=== PATIENT | male | born 1970 | race Caucasian/White ===

== ENCOUNTER 2018-07-31 15:15 | Emergency (ER) | payer MEDICARE, MEDICAID ==
[~2018-07-31] VITALS: Ht 180.3 cm; Wt 74.5 kg
[2018-07-31 15:57] LABS: HEMATOCRIT 36.6 % (39.0-50.0); HEMOGLOBIN 13.3 g/dl (14.0-18.0); IMMATURE GRANULOCYTES 0.6 % (0.0-5.0); MEAN CELL VOLUME 100.5 fL CALC (80.0-100.0); MEAN CORPUSCULAR HGB 36.5 pG CALC (26.0-32.0); MEAN CORPUSCULAR HGB CONC 36.3 g/L CALC (32.0-36.0); NEUT# 3.16 thou/uL (1.82-7.42); RED BLOOD COUNT 3.64 mill/uL (4.70-6.10); RED CELL DISTRI WIDTH 13.3 % (11.5-15.5)
[2018-07-31 15:59] LABS: URINE BILIRUBIN - DIPSTICK NEGATIVE (NEGATIVE); URINE BLOOD DIPSTICK NEGATIVE (NEGATIVE); URINE COLOR YELLOW; URINE GLUCOSE - DIPSTICK NEGATIVE (NEGATIVE); URINE KETONE NEGATIVE (NEGATIVE); URINE LEUK ESTERASE NEGATIVE (NEGATIVE); URINE NITRITE - DIPSTICK NEGATIVE (Negative); URINE PROTEIN - DIPSTICK NEGATIVE (NEG-TRACE)
[2018-07-31 16:07] LABS: URINE CLARITY CLEAR
[2018-07-31 16:22] LABS: ALBUMIN 4.3 g/dL (3.2-5.0); ALKALINE PHOSPHATASE 77 u/l (38-126); ANION GAP 17 (6-22 (CALC)); BUN 17 mg/dL (9-20); BUN/CREATININE RATIO 26 (12-20 (CALC)); CARBON DIOXIDE 23 mmol/l (22-30); CHLORIDE 108 mmol/l (95-108); CREATININE 0.7 mg/dL (0.7-1.3); GFR > 60 ML/MIN (>=60 (CALC)); GFR FOR AFR.AMER. > 60 ML/MIN (>=60 (CALC)); LIPASE 119 u/l (23-300); POTASSIUM 3.1 mmol/l (3.5-5.1); SGOT/AST 88 u/l (17-59); SGPT/ALT 51 u/l (21-72); SODIUM 145 mmol/l (137-146); TOTAL PROTEIN 7.3 g/dL (6.3-8.2)
[2018-07-31] MEDS ORDERED: POTASSIUM CHLO20 ME1 PO (16:39)
[2018-07-31 19:31] VITALS: BP 140/80
== END 2018-07-31 19:31 | disposition home or self-care (01) ==
LOC: ED 15:15
PROVIDERS: Family Medicine
DX: S50.12XA Contusion of left forearm, initial encounter (principal); S30.1XXA Contusion of abdominal wall, initial encounter; I10 Essential (primary) hypertension; F17.210 Nicotine dependence, cigarettes, uncomplicated; Y04.0XXA Assault by unarmed brawl or fight, initial encounter; Y92.009 Unspecified place in unspecified non-institutional (private) residence as the place of occurrence of the external cause; Z21 Asymptomatic human immunodeficiency virus [HIV] infection status
CPT/HCPCS: Q9967

== ENCOUNTER 2019-07-11 15:08 | Emergency (ER) | payer MEDICARE ==
[~2019-07-11] VITALS: Ht 180.3 cm; Wt 72.0 kg
[~2019-07-11 15:08] MED LIST: POTASSIUM CHLO20 ME1 PO
[2019-07-11] MEDS ORDERED: XANAX1 MG PO (15:19)
[2019-07-11] MEDS ORDERED: ADDERALL30 MG PO (15:19)
[2019-07-11] MEDS ORDERED: TRIUMEQ 600-50-1 TAB PO (15:20)
[2019-07-11 16:01] LABS: HEMATOCRIT 41.9 % (39.0-50.0); IMMATURE GRANULOCYTES 0.5 % (0.0-5.0); MEAN CORPUSCULAR HGB 31.4 pG CALC (26.0-32.0); MEAN CORPUSCULAR HGB CONC 35.8 g/L CALC (32.0-36.0); NEUT# 5.61 thou/uL (1.82-7.42); RED BLOOD COUNT 4.77 mill/uL (4.70-6.10); RED CELL DISTRI WIDTH 12.6 % (11.5-15.5)
[2019-07-11 16:04] LABS: MEAN CELL VOLUME 87.8 fL CALC (80.0-100.0)
[2019-07-11 16:18] LABS: ALBUMIN 4.6 g/dL (3.2-5.0); ALKALINE PHOSPHATASE 86 u/l (38-126); BUN 13 mg/dL (9-20); BUN/CREATININE RATIO 17 (12-20 (CALC)); CARBON DIOXIDE 22 mmol/l (22-30); CHLORIDE 104 mmol/l (95-108); CREATININE 0.8 mg/dL (0.7-1.3); GFR > 60 ML/MIN (>=60 (CALC)); GFR FOR AFR.AMER. > 60 ML/MIN (>=60 (CALC)); POTASSIUM 3.5 mmol/l (3.5-5.1); SGOT/AST 30 u/l (17-59); TOTAL PROTEIN 8.2 g/dL (6.3-8.2)
[2019-07-11 16:19] LABS: ANION GAP 14 (6-22 (CALC)); SODIUM 136 mmol/l (137-146)
[2019-07-11] MEDS ORDERED: CLEOCIN300 MG PO (17:10)
[2019-07-11] MEDS ORDERED: BACTRIM DS1 TAB PO (17:10)
[2019-07-11 17:15] VITALS: BP 128/90
== END 2019-07-11 17:59 | disposition left against medical advice (07) ==
LOC: ED 15:08
DX: L03.114 Cellulitis of left upper limb (principal); F15.10 Other stimulant abuse, uncomplicated; F17.210 Nicotine dependence, cigarettes, uncomplicated; Z72.89 Other problems related to lifestyle; Z21 Asymptomatic human immunodeficiency virus [HIV] infection status; I10 Essential (primary) hypertension

== ENCOUNTER 2019-09-29 09:57 | Emergency (ER) | payer MEDICARE ==
[~2019-09-29] VITALS: Ht 177.8 cm; Wt 81.0 kg
[~2019-09-29 09:57] MED LIST changes: +ADDERALL30 MG PO; +ASPIRIN ADULT L81 M2 PO; +BACLOFEN20 MG PO; +BACTRIM DS1 TAB PO; +CLEOCIN300 MG PO; +IPRATROPIUM BR0.02 % IN; +MEDDOSEPAK PO; +MELOXICAM15 MG; +TRIUMEQ 600-50-1 TAB PO; +XANAX1 MG PO; +ZITHROMAX250 MG PO
[2019-09-29 10:31] LABS: HEMATOCRIT 40.7 % (39.0-50.0); HEMOGLOBIN 14.5 g/dl (14.0-18.0); IMMATURE GRANULOCYTES 0.6 % (0.0-5.0); MEAN CELL VOLUME 94.4 fL CALC (80.0-100.0); MEAN CORPUSCULAR HGB 33.6 pG CALC (26.0-32.0); MEAN CORPUSCULAR HGB CONC 35.6 g/L CALC (32.0-36.0); NEUT# 2.28 thou/uL (1.82-7.42); RED BLOOD COUNT 4.31 mill/uL (4.70-6.10); RED CELL DISTRI WIDTH 14.4 % (11.5-15.5)
[2019-09-29 10:45] LABS: ANION GAP 14 (6-22 (CALC)); BUN 21 mg/dL (9-20); BUN/CREATININE RATIO 29 (12-20 (CALC)); CARBON DIOXIDE 20 mmol/l (22-30); CHLORIDE 110 mmol/l (95-108); CREATININE 0.7 mg/dL (0.7-1.3); GFR > 60 ML/MIN (>=60 (CALC)); GFR FOR AFR.AMER. > 60 ML/MIN (>=60 (CALC)); POTASSIUM 3.8 mmol/l (3.5-5.1); SODIUM 140 mmol/l (137-146)
[2019-09-29] MEDS ORDERED: PLAVIX75 MG PO (10:55)
[2019-09-29] MEDS ORDERED: LOSARTAN POTASS50 MG PO (10:56)
[2019-09-29] MEDS ORDERED: COREG6.25 MG PO (10:57)
[2019-09-29 12:34] VITALS: BP 148/104
[2019-09-30 04:55] LABS: ETHYL ALCOHOL 132 mg/dl (0-30)
== END 2019-09-29 12:49 | disposition left against medical advice (07) ==
LOC: ED 09:57
PROVIDERS: Family Medicine
DX: I63.9 Cerebral infarction, unspecified (principal); R47.81 Slurred speech; Z72.0 Tobacco use; Z53.29 Procedure and treatment not carried out because of patient's decision for other reasons; I63.81 Other cerebral infarction due to occlusion or stenosis of small artery

== ENCOUNTER 2019-09-29 15:30 | Emergency (ER) | payer MEDICARE ==
[~2019-09-29 15:30] MED LIST changes: +COREG6.25 MG PO; +LOSARTAN POTASS50 MG PO; +PLAVIX75 MG PO
== END 2019-09-29 16:55 | disposition short-term general hospital (02) ==
LOC: ED 15:30
DX: I63.81 Other cerebral infarction due to occlusion or stenosis of small artery (principal); R47.81 Slurred speech; Z72.0 Tobacco use

== ENCOUNTER 2019-11-06 | Emergency (ER) | payer MEDICARE | END 2019-11-06 22:05 | disposition left against medical advice (07) | DX: R07.9 Chest pain, unspecified (principal); I10 Essential (primary) hypertension; F17.200 Nicotine dependence, unspecified, uncomplicated; Z21 Asymptomatic human immunodeficiency virus [HIV] infection status ==

== ENCOUNTER 2019-11-08 | Emergency (ER) | payer MEDICARE ==
[2019-11-08 12:20] LABS: HEMATOCRIT 40.8 % (39.0-50.0); HEMOGLOBIN 14.9 g/dl (14.0-18.0); IMMATURE GRANULOCYTES 0.7 % (0.0-5.0); MEAN CELL VOLUME 97.4 fL CALC (80.0-100.0); MEAN CORPUSCULAR HGB 35.6 pG CALC (26.0-32.0); MEAN CORPUSCULAR HGB CONC 36.5 g/L CALC (32.0-36.0); NEUT# 1.88 thou/uL (1.82-7.42); RED BLOOD COUNT 4.19 mill/uL (4.70-6.10); RED CELL DISTRI WIDTH 15.8 % (11.5-15.5)
[2019-11-08 12:39] LABS: ALBUMIN 4.1 g/dL (3.2-5.0); ALKALINE PHOSPHATASE 98 u/l (38-126); ANION GAP 14 (6-22 (CALC)); BILIRUBIN, TOTAL 0.9 mg/dL (0.0-1.4); BUN 13 mg/dL (9-20); BUN/CREATININE RATIO 20 (12-20 (CALC)); CARBON DIOXIDE 21 mmol/l (22-30); CHLORIDE 110 mmol/l (95-108); CREATININE 0.6 mg/dL (0.7-1.3); GFR > 60 ML/MIN (>=60 (CALC)); GFR FOR AFR.AMER. > 60 ML/MIN (>=60 (CALC)); LIPASE 238 u/l (23-300); POTASSIUM 3.7 mmol/l (3.5-5.1); SODIUM 141 mmol/l (137-146); TOTAL PROTEIN 7.6 g/dL (6.3-8.2)
[2019-11-08 12:49] LABS: SGOT/AST 289 u/l (17-59)
== END 2019-11-08 13:20 | disposition left against medical advice (07) ==
DX: R07.9 Chest pain, unspecified (principal); R94.5 Abnormal results of liver function studies; F41.9 Anxiety disorder, unspecified; I10 Essential (primary) hypertension; B19.20 Unspecified viral hepatitis C without hepatic coma; F17.200 Nicotine dependence, unspecified, uncomplicated; Z21 Asymptomatic human immunodeficiency virus [HIV] infection status; Z91.19 Patient's noncompliance with other medical treatment and regimen; R06.02 Shortness of breath

== ENCOUNTER 2019-11-23 | Emergency (ER) | payer MEDICARE ==
--- NOTE | 2019-11-23 11:13 | NUR ---
OBSERVED IN TRIAGE ROOM THEN IMMEDIATELY TO ROOM AND STROKE ALERT CALLED [id number]
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
[2019-11-23 11:39] LABS: HEMATOCRIT 42.2 % (39.0-50.0); IMMATURE GRANULOCYTES 0.9 % (0.0-5.0); MEAN CELL VOLUME 102.2 fL CALC (80.0-100.0); MEAN CORPUSCULAR HGB 36.3 pG CALC (26.0-32.0); MEAN CORPUSCULAR HGB CONC 35.5 g/L CALC (32.0-36.0); NEUT# 1.44 thou/uL (1.82-7.42); RED BLOOD COUNT 4.13 mill/uL (4.70-6.10); RED CELL DISTRI WIDTH 14.9 % (11.5-15.5)
[2019-11-23 11:54] LABS: ALKALINE PHOSPHATASE 101 u/l (38-126); ANION GAP 14 (6-22 (CALC)); BILIRUBIN, TOTAL 0.6 mg/dL (0.0-1.4); BUN 11 mg/dL (9-20); BUN/CREATININE RATIO 15 (12-20 (CALC)); CARBON DIOXIDE 19 mmol/l (22-30); CHLORIDE 112 mmol/l (95-108); CREATININE 0.8 mg/dL (0.7-1.3); GFR > 60 ML/MIN (>=60 (CALC)); GFR FOR AFR.AMER. > 60 ML/MIN (>=60 (CALC)); POTASSIUM 3.4 mmol/l (3.5-5.1); SGOT/AST 278 u/l (17-59); SODIUM 142 mmol/l (137-146); TOTAL PROTEIN 7.7 g/dL (6.3-8.2)
--- NOTE | 2019-11-23 12:00 | NUR ---
O2 KAMILLE MAINTAINED 97-100% ON ROOM AIR NO O2 REQUIRED
--- NOTE | 2019-11-23 12:30 | NUR ---
CURRENT NIH 2, CONTINUES TO HAVE DYSARTHIA AND DECREASED SENSATION TO RIGH SIDE OF BODY. PATIENT REQUESTING DILAUDID PAIN MEDICATION AND ATIVAN FOR ANXIETY. MADE AWARE.
[2019-11-23 12:34] LABS: PROTHROMBIN TIME 10.7 SECONDS (9.0-12.5)
--- NOTE | 2019-11-23 12:35 | NUR ---
PATIENT MEDICATED PER MD ORDER FOR CHRONIC GENERALIZED PAIN, RATES 9/10. NO CHOKING OR COUGH NOTED AFTER TAKING PO MEDS.
--- NOTE | 2019-11-23 12:55 | NUR ---
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 DR.PITA MCNAIR.
--- NOTE | 2019-11-23 13:10 | NUR ---
AT BEDSIDE TO DISCUSS RESULTS AND PLAN OF CARE FOR POSSIBLE TRANSFER AND ADMIT. PATIENT REFUSING TO BE TRANSFERRED TO [facility].
--- NOTE | 2019-11-23 13:48 | NUR ---
SBAR PRINTED FLOOR
--- NOTE | 2019-11-23 13:50 | NUR ---
PATIENT CONVERSATING WITH VISITIOR WITH NO DISTRESS NOTED.
--- NOTE | 2019-11-23 14:35 | NUR ---
PATIENT RESTING ON STRETCHER NO CHANGE IN PREVIOUS ASSESSMENT. WILL CONTINUE TO MONITOR.
--- NOTE | 2019-11-23 15:22 | NUR ---
PT CALLS HUMAN INTELLIGENCE LOERA STATING TO COME GET THIS THING OUT OF HIS ARM HE WANTS TO GO AMA, UPON ENTERING ROOM PT STANDING AT BEDSIDE STATING HE WNATS TO LEAVE AMA NO ONE LISTENS TO HIM ABOUT HIS CONDITION, HIS ISN'T CONCERNED ABOUT HIM AND HE CAN WALK IT OFF BETTER AT HOME THAN HE CAN IN THE HOSPITAL, CONTINUES TO RANT ABOUT HIS HABITS, DRUG USE ETC....IV SITE REMOVED INTACT.
--- NOTE | 2019-11-23 15:24 | NUR ---
Patient decides to leave AMA. Multiple attempts made to ecourage patient to remain here for continued treatment. Explained to patient all risks of leaving against medical advice including . Pt verbalized understanding of all risks. Pt also encouraged to return to [facility] at any time, especially if symptoms continue or become worse. Pt verbalized understanding. Ambulates off unit with strong steady gait.
== END 2019-11-23 15:24 | disposition left against medical advice (07) ==
PROVIDERS: Family Medicine
DX: G45.9 Transient cerebral ischemic attack, unspecified (principal); F17.200 Nicotine dependence, unspecified, uncomplicated; I10 Essential (primary) hypertension; Z21 Asymptomatic human immunodeficiency virus [HIV] infection status; Z86.73 Personal history of transient ischemic attack (TIA), and cerebral infarction without residual deficits; Z91.19 Patient's noncompliance with other medical treatment and regimen
CPT/HCPCS: Q9967

== ENCOUNTER 2020-06-21 18:44 | Observation (INO) | payer MEDICARE ==
[~2020-06-21] VITALS: Ht 180.3 cm; Wt 86.2 kg
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
[2020-06-21 19:11] LABS: HEMATOCRIT 43.1 % (39.0-50.0); HEMOGLOBIN 15.5 g/dl (14.0-18.0); IMMATURE GRANULOCYTES 0.2 % (0.0-5.0); MEAN CORPUSCULAR HGB 32.4 pG CALC (26.0-32.0); NEUT# 2.6 thou/uL (1.82-7.42); RED BLOOD COUNT 4.79 mill/uL (4.70-6.10); RED CELL DISTRI WIDTH 13.9 % (11.5-15.5)
[2020-06-21 19:29] LABS: ALKALINE PHOSPHATASE 106 u/l (38-126); ANION GAP 17 (6-22 (CALC)); BUN 27 mg/dL (9-20); CARBON DIOXIDE 21 mmol/l (22-30); CHLORIDE 104 mmol/l (95-108); CPK 661 u/l (52-200); ETHYL ALCOHOL 0 mg/dl (0-30); LIPASE 73 u/l (23-300); MAGNESIUM 1.8 mg/dL (1.6-2.3); SGOT/AST 73 u/l (17-59); SODIUM 138 mmol/l (137-146); TOTAL PROTEIN 9.1 g/dL (6.3-8.2)
[2020-06-21 19:30] LABS: ALBUMIN 4.9 g/dL (3.2-5.0); BUN/CREATININE RATIO 14 (12-20 (CALC)); CREATININE 1.9 mg/dL (0.7-1.3); GFR 37 ML/MIN (>=60 (CALC)); GFR FOR AFR.AMER. 45 ML/MIN (>=60 (CALC))
--- NOTE | 2020-06-21 20:30 | NUR ---
PT STILL WIGGIN ABOUT THE BED. CT ORDERED. DR. CALVERT AT BEDSIDE. ADDITIONAL 2MG OF ATIVAN GIVEN. PT CALMED SOME. TAKEN TO CT VIA STRETCHER.
--- NOTE | 2020-06-21 20:46 | NUR ---
PT WAS TAKEN TO CT BUT WAS NOT ABLE TO GET ONTO CT STRETCHER...UNABLE TO CALM HIM ENOUGHT TO MOVE HIM SAFELY HE WAS KICKING FEET AROUND AND TALKING JIBBERISH. DR. CALVERT CALLED AND HE ORDERED PT RETURNED TO ER AND WE WILL CALL IN ANESTHESIA FOR SEDATION.
--- NOTE | 2020-06-21 21:10 | NUR ---
PT SNORING AT PRESENT...WHEN MILDLY STIMULATED...PT GETS AGITATED.
--- NOTE | 2020-06-21 21:33 | NUR ---
NURSE MANAGER BUSINESS PLANNING HERE TO GO TO CT WITH PT. RT HERE. DR. CALVERT TO CT WITH PT TO BE CONSCIOUS SEDATED IN CT FOR CT OF HEAD. PORTABLE MONITOR WITH PT. PT CONNECTED TO EQUIP IN CT.
--- NOTE | 2020-06-21 21:35 | NUR ---
IN CT. IVF UP. PT SECURED TO CT TABLE. RT AND MD AT BEDSIDE. VERSED 4 MG IVP GIVEN BY N.A.
--- NOTE | 2020-06-21 21:47 | NUR ---
PT RETURNED FROM CT VIA STRETCHER WITH PORTABLE MONITOR. PT RESP EASY REG.
--- NOTE | 2020-06-21 21:57 | NUR ---
PT POSITIONED AND REATTACHED TO EQUIP. RESP EASY REG. RESTING. VSS. BYRNES CATH INSERTED. URINE SAMPLE OBTAINED. SENT TO LAB.
[2020-06-21 22:12] LABS: URINE BLOOD DIPSTICK NEGATIVE (NEGATIVE); URINE COLOR YELLOW; URINE GLUCOSE - DIPSTICK NEGATIVE (NEGATIVE); URINE KETONE 15 mg/dL (NEGATIVE); URINE LEUK ESTERASE NEGATIVE (NEGATIVE); URINE NITRITE - DIPSTICK NEGATIVE (Negative); URINE PH 5.5 (4.5-8.0); URINE PROTEIN - DIPSTICK 30 mg/dL (NEG-TRACE); URINE SPECIFIC GRAVITY >=1.030
[2020-06-21 22:19] LABS: URINE BILIRUBIN - DIPSTICK NEGATIVE (NEGATIVE)
--- NOTE | 2020-06-21 22:30 | NUR ---
PT RESTING. AWAKENS AT INTERVALS...CONFUSED.
[2020-06-21 22:38] LABS: URINE RBC 0-2 RBC/hpf (0-5); URINE WBC 0-2 WBC/hpf (0-5)
[2020-06-21 22:39] LABS: URINE AMORPH SEDIMENT FEW hpf (NONE-FER); URINE SPERM FEW hpf (NONE-RARE)
--- NOTE | 2020-06-21 23:44 | NUR ---
REPORT TO LOLLY VILLALOBOS.
[2020-06-22] VITALS (15 sets, daily range): BP systolic 105–164; BP diastolic 70–97
--- NOTE | 2020-06-22 00:30 | NUR ---
50 yr old white male adm icu4 per stretcher from er. transferred self to bed. bed weight obtained. oriented to name & place. has jerky & uncoordinated movements. youth nutritional monitor shows sinus rhythm multi pvcs hr 78. #20 uzma ns w 40kcl infusing @ 125cchr. history obtained per pt & er record. oriented to room. fall precautions initiated. bed alarm activated.
--- NOTE | 2020-06-22 00:30 | NUR ---
TO FLOOR VIA STRETCHER/PORTABLE MONITOR/O2@ 2 LPM/IV NS WITH 40 MEQ KCL. PT LETHARGIC AT TIMES...THEN AROUSES KICKING AROUND AND TALKING NONSENSE. WHEN NAME CALLED PT STOPS FOR A SECOND AND THEN RESUMES.
--- NOTE | 2020-06-22 00:30 | NUR ---
MODERATE SEDATION RECOVERY FORM COMPLETED BY RN/ON CHART.
--- NOTE | 2020-06-22 02:00 | NUR ---
eyes closed. no distress. telemetry monitor shows sinus rhythm freq pvcs hr 78.
--- NOTE | 2020-06-22 04:00 | NUR ---
resting quietly. nad. electronic device monitor shows sinus rhythm freq pvcs hr 72. wood draining well.
--- NOTE | 2020-06-22 05:43 | NUR ---
eyes closed. nad. campus monitor shows sinus rhythm hr 79.
--- NOTE | 2020-06-22 07:40 | NUR ---
ASSESSMENT IS COMPLETED; IV SITE IS FREE FROM REDNESS OR EDEMA. HR IS REG,PULSES ARE STRONG X4, ABD IS SOFT WITH ACTIVE BS.BREATH SOUNSD ARE CLEAR,BILATERALLY. BYRNES DRAINING YELLOW URINE. TELE IN PLACE. CONTINUE TO OBSERVE AND MONITOR.
[2020-06-22] MEDS ORDERED: ALPRAZOLAM0.5 MG PO (08:10)
[2020-06-22] MEDS ORDERED: ADDERALL20 MG PO (08:10)
[2020-06-22] MEDS ORDERED: TRAZODONE50 MG PO (08:11)
[2020-06-22] MEDS ORDERED: SECUKINUMAB SC (08:11)
[2020-06-22] MEDS ORDERED: TESTOST CYP200 MG/ML IM (08:12)
[2020-06-22] MEDS ORDERED: TRIUMEQ 600-50-1 TAB PO (08:12)
--- NOTE | 2020-06-22 08:13 | NUR ---
COMPILED MED LIST IN MED REC FROM CLAIMS HISTORY
[2020-06-22 08:47] LABS: ANION GAP 12 (6-22 (CALC)); BUN 26 mg/dL (9-20); BUN/CREATININE RATIO 25 (12-20 (CALC)); CARBON DIOXIDE 17 mmol/l (22-30); CHLORIDE 113 mmol/l (95-108); GFR > 60 ML/MIN (>=60 (CALC)); GFR FOR AFR.AMER. > 60 ML/MIN (>=60 (CALC)); POTASSIUM 3.5 mmol/l (3.5-5.1); SODIUM 139 mmol/l (137-146)
--- NOTE | 2020-06-22 10:00 | NUR ---
PT HAS BEEN RSTING IN BED WITH NO DISTRESS NOTED.
--- NOTE | 2020-06-22 11:34 | NUR ---
PT IS REQUESTING CASE MANAGEMENT/
--- NOTE | 2020-06-22 11:35 | NUR ---
INQUIRED WITH PT: ABOUT HOME MEDICATION. IS UNABLE TO GET THE MED OR HAVE ANYONE BRING IT IN.
--- NOTE | 2020-06-22 11:52 | NUR ---
PT TAKES [facility] A HOME MED, ORDER WAS CONTINUED TO BE USED IN PATIENT. PT DOES NOT HAVE MED WITH HIM, CLAIMS NO ONE AT HOME IS ABLE TO BRING IT IN. SPOKE WITH DR TRENT, DISCONTINUED ORDER FOR [facility].
--- NOTE | 2020-06-22 12:00 | NUR ---
PT IS VERY RESTLESS. AND GETS UP TO THE BSC. HAD A LARGE BM LOOSE. IV SITE IS FREE FROM REDNESS OR EDEMA CONTINUE TO OBSERVE AND MONITOR.
--- NOTE | 2020-06-22 12:48 | NUR ---
PT REQUESTED TO HAVE CASE MANAGEMENT TO TALK WITH HIM. [facility] CASE MANAGEMENT IS IN THERE NOW
--- NOTE | 2020-06-22 14:00 | NUR ---
PT IS RELAXING IN BED CONTINUES TO BE RESTLESS. IV SITE GETS WRAPPED AROUND HIM . CONTNUE TO OBSERVE AND MONITOR.
--- NOTE | 2020-06-22 19:15 | NUR ---
REPORT GIVEN BY SHANIQUE. PATIENT IN BED RESTING WITH EYES CLOSED. RESP EVEN AND UNLABORED. NO S/S OF DISTRESS NOTED. BYRNES DRAINING TO GRAVITY, ERINN COLORED URINE. WHEN AROUSED THE PATIENT WAS STARTLED AND ANXIOUS.IV INFUSING NS @ 125. PLAN OF CARE DISCUSSED. PATIENT INFORMED TO CALL WITH ANY QUESTIONS OR CONCERNS. FALL AND SAFTEY PRECAUTIONS IN PLACE.
--- NOTE | 2020-06-22 22:07 | NUR ---
PATIENT RESTING WITH EYES CLOSED. NO S/S OF DISTRESS NOTED. RESP EVEN AND UNLABORED. FALL AND SAFTEY PRECAUTIONS IN PLACE
[2020-06-23] VITALS (9 sets, daily range): BP systolic 125–166; BP diastolic 73–97
--- NOTE | 2020-06-23 00:25 | NUR ---
PATIENT RESTING WITH EYES CLOSED. RESP EVEN AND UNLABORED. NO S/S OF DISTRESS NOTED.
--- NOTE | 2020-06-23 01:14 | NUR ---
PATIENT STATES THAT HIS RIGHT HAND AND ARM ARE WARM AND TIGHT. THE RIGHT HAND AND ARM ARE SWOLLEN AND WARM ON ASSESSMENT. RADIAL PULSE FELT. RING PRESENT ON THE RIGHT HAND MIDDLE FINGER, ATTEMPTED TO REMOVE WITH SUCCESS.THE RIGHT ARM WAS ELEVATED WITH A COOL COMPRESS. I RECOMMENDED MOVING THE IV SITE TO THE OTHER ARM, PATIENT DECLINED AT THIS TIME. PATIENT ALSO STATED THAT HE NO LONGER WANTED THE PULSE OX PRESENT ON HIS HANDS, HE WAS EDUCATED ON THE REASONS WHY IT WAS IMPORTANT FOR HIM TO KEEP IT ON.
--- NOTE | 2020-06-23 02:00 | NUR ---
PATIENT RESTING IN BED WITH EYES CLOSE. RESP EVEN AND UNLABORED. NO S/S OF DISTRESS NOTED.
--- NOTE | 2020-06-23 04:22 | NUR ---
PATIENT RESTING IN BED WITH EYES CLOSED. RESP EVEN AND UNLABORED. NO S/S OF DISTRESS NOTED. FALL AND SAFTEY PRECATUIONS IN PLACE.
[2020-06-23 06:33] LABS: ANION GAP 8 (6-22 (CALC)); BUN 15 mg/dL (9-20); BUN/CREATININE RATIO 22 (12-20 (CALC)); CHLORIDE 110 mmol/l (95-108); CPK 258 u/l (52-200); CREATININE 0.7 mg/dL (0.7-1.3); GFR > 60 ML/MIN (>=60 (CALC)); GFR FOR AFR.AMER. > 60 ML/MIN (>=60 (CALC)); SODIUM 136 mmol/l (137-146)
[2020-06-23 06:39] LABS: CARBON DIOXIDE 21 mmol/l (22-30)
--- NOTE | 2020-06-23 08:00 | NUR ---
PATIENT ALERT, SITTING IN BED, NO ACUTE DISTRESS NOTED, ROUTINE ASSESSMENT COMPLETED AT THIS TIME, DOCTOR AT BEDSIDE, SWELLING NOTED TO BILATERAL HANDS, RECEIVED ORDER FOR LASIX AT THIS TIME. NO OTHER CONCERNS AT THIS TIME.
--- NOTE | 2020-06-23 10:00 | NUR ---
PATIENT RESTING COMFORTABLY IN BED, NEW IV PLACED AT THIS TIME, MEDS ADMINISTERED, PATIENT DENIES ANY PAIN OR OTHER CONCERNS AT THIS TIME.
--- NOTE | 2020-06-23 12:05 | NUR ---
PATIENT RESTING WITHOUT ANY SIGNS OF DISTRESS, MEDS ADMINISTERED AT THIS TIME WITHOUT COMPLICATION, REPORTS HANDS FEELING BETTER.
--- NOTE | 2020-06-23 15:57 | NUR ---
IV AND BYRNES D/C'D WITHOUT COMPLICATIONS AT THIS TIME, PATIENT BEING DISCHARGED.
--- NOTE | 2020-06-23 16:16 | NUR ---
Discharge instructions given. Patient verbalizes understanding of same. Discharged in stable condition via [facility] All belongings sent with pt. Pt used phone to contact health department to notify ed case manager of discharge.
== END 2020-06-23 16:09 | disposition home or self-care (01) ==
LOC: ED 18:44 → ED-I 19:40 → ED 19:40 → ED-I 20:37 → ED 22:28 → ICU 22:29 → ED-I 22:29 → ICU 22:30
PROVIDERS: Family Medicine; Internal Medicine; ADMIT Internal Medicine; ATTEND Internal Medicine
PROC: 0T9B70Z Drainage of Bladder with Drainage Device, Via Natural or Artificial Opening (ICD-10-PCS; principal; 2020-06-21)
DX: T41.29 Poisoning by, adverse effect of and underdosing of other general anesthetics (principal); G92 Toxic encephalopathy; F15.10 Other stimulant abuse, uncomplicated; M62.82 Rhabdomyolysis; E87.6 Hypokalemia; I10 Essential (primary) hypertension; F90.2 Attention-deficit hyperactivity disorder, combined type; B19.20 Unspecified viral hepatitis C without hepatic coma; F17.200 Nicotine dependence, unspecified, uncomplicated; Z21 Asymptomatic human immunodeficiency virus [HIV] infection status; Z91.19 Patient's noncompliance with other medical treatment and regimen; Z20.828 Contact with and (suspected) exposure to other viral communicable diseases
CPT/HCPCS: J2060

== ENCOUNTER 2020-09-18 07:27 | Emergency (ER) | payer MEDICARE ==
[~2020-09-18] VITALS: Ht 180.3 cm; Wt 65.0 kg
[~2020-09-18 07:27] MED LIST changes: +ADDERALL20 MG PO; +ALPRAZOLAM0.5 MG PO; +SECUKINUMAB SC; +TESTOST CYP200 MG/ML IM; +TRAZODONE50 MG PO
[2020-09-18 08:31] VITALS: BP 166/111
--- NOTE | 2020-09-20 09:30 | NUR ---
Patient's , Shankar Henry, called for patients Covid results. Advised that Covid results are negative. Encouraged patient to continue with Covid prevention practices.
== END 2020-09-18 09:50 | disposition home or self-care (01) ==
LOC: ED 07:27
DX: U07.1 COVID-19 (principal); I10 Essential (primary) hypertension; B19.20 Unspecified viral hepatitis C without hepatic coma; Z21 Asymptomatic human immunodeficiency virus [HIV] infection status; F17.210 Nicotine dependence, cigarettes, uncomplicated

== ENCOUNTER 2020-11-25 12:40 | Emergency (ER) | payer MEDICARE ==
[~2020-11-25] VITALS: Ht 180.3 cm; Wt 79.0 kg
[2020-11-25] MEDS ORDERED: JULUCA PO (13:32)
[2020-11-25] MEDS ORDERED: BACTRIM DS1 TAB PO (13:41)
[2020-11-25 13:45] VITALS: BP 138/89
== END 2020-11-25 13:45 | disposition home or self-care (01) ==
LOC: ED 12:40
DX: I88.8 Other nonspecific lymphadenitis (principal); I10 Essential (primary) hypertension; B19.20 Unspecified viral hepatitis C without hepatic coma; F17.200 Nicotine dependence, unspecified, uncomplicated; Z21 Asymptomatic human immunodeficiency virus [HIV] infection status